=== PATIENT | male | born 1950 | race Caucasian/White ===

== ENCOUNTER 2018-11-08 09:50 | Inpatient (IN) | payer MEDICARE, OTHER ==
[~2018-11-08] VITALS: Ht 180.3 cm; Wt 104.5 kg
[~2018-11-08 09:50] MED LIST: ATENOLOL50 MG PO; Levothyroxine PO; SYNTHROID 0.10.15 MG PO; TRIGLIDE50 MG PO; ZYLOPRIM 100MG100 MG PO; ZYLOPRIM 300MG300 MG; [UNRECOGNIZED DRUG - REMARK] PO
[2019-01-06] VITALS (12 sets, daily range): BP systolic 125–143; BP diastolic 60–85; PULSE 61–81; TEMP 97.8–98.1
[2019-01-06] MEDS ORDERED: NORVASC 5MG5 MG/TAB PO (07:34)
[2019-01-06] MEDS ORDERED: ZYLOPRIM 300MG300 MG PO (07:35)
[2019-01-06] MEDS ORDERED: TIROSINT100 MC1 PO (07:37)
[2019-01-06] MEDS ORDERED: LIPITOR 10MG10 MG PO (07:38)
--- NOTE | 2019-01-06 08:29 | NUR ---
PT ADMITTED AMBULATORY TO ROOM 329. ASSESSMENTS COMPLETE, PRE OP MEDS GIVEN ORDERED. ATTEMPTED IV START TO LEFT HAND AND WAS NOT SUCCESSFUL. [facility] CONTACTD FOR ASSISTANCE.
--- NOTE | 2019-01-06 08:51 | NUR ---
PATIENT TO SURGERY AT THIS TIME PER BED WITH JOE. HALE STARTED BY AMANDA TO LEFT HAND.
--- NOTE | 2019-01-06 14:29 | NUR ---
PT TO ROOM 329 PER BED WITH REPORT FROM EVELYN SOTO PACU @2724. PT IS A/O X3, DRESSING TO LEFT HIP CDI WITH BULKY FOAM TAPE DRESSING OVER INCISION.
--- NOTE | 2019-01-06 16:23 | NUR ---
PT CONVERTED BY REPORT FROM TELE/ICU. STEFFANY MOY APRN AND DR. LIZ IN TO SEE PATIENT SEE COMPUTER FOR ORDERS.
--- NOTE | 2019-01-06 18:50 | NUR ---
REPORT TO MARCELO SOTO.
--- NOTE | 2019-01-06 23:25 | NUR ---
Patient got up and was able to ambulate in hallway with no issues. States pain in tolerable. Patient now resting in chair. No other concerns at this time. Will continue to monitor
[2019-01-07 01:26] VITALS: BP 143/65; PULSE 76; TEMP 98.2
[2019-01-07 07:55] LABS: HEMOGLOBIN 14.8 g/dl (13.5-18.0)
[2019-01-07 08:20] VITALS: BP 151/62; PULSE 84; TEMP 99.2
--- NOTE | 2019-01-07 08:25 | NUR ---
Lovett catheter discountinued. Catheter removed fully intact.Withdrew 8.8mls of water from the balloon. Emptied 175 mls from catheter bag. Urine was lucas and clear.
--- NOTE | 2019-01-07 08:47 | NUR ---
PT UP TO RECLINER FOR BREAKFAST. PT DOING WELL, PAIN WELL CONTROLLED WITH PO MEDS. PT EATING AND DRINKING WITH NO NAUSEA OR VOMITING, RAGSDALE CATHETER DISCONTINUED. PT DENIES NEEDS AT THIS TIME.
[2019-01-07 11:00] VITALS: BP 145/66; PULSE 82; TEMP 98.3
--- NOTE | 2019-01-07 16:02 | NUR ---
insemination worker met with patient and spouse to discuss discharge planning. patient states that he lives with his spouse and will return there upon discharge, possibly Sunday. patient states he has a walker and that spouse is obtaining a toilet riser. Spouse states that she will assist patient with sponge bathing and that they have a tub/shower. Patient's primary care provider is Dr Katz and patient states he obtains his prescriptions from [facility]. Spouset states they will obtain medications, as needed, at a local pharmacy and denies concerns with this plan. Worker collaborated with patient's nurse regarding the above information.
[2019-01-07 16:40] VITALS: BP 159/61; PULSE 67; TEMP 98.1
--- NOTE | 2019-01-07 19:31 | NUR ---
Patient doing well. Sitting up in chair. Voiding with no issues. No complaints of pain at this time or any other concerns. Call light within reach, will continue to monitor
[2019-01-07 20:00] VITALS: BP 164/68; PULSE 95; TEMP 97.7; TEMP 98.1
--- NOTE | 2019-01-07 21:42 | NUR ---
Patient ambulated about [address]. Tolerated it well. Patient says his pain is doing fine, does not want any pain meds at this time. Patient states he feels like he has to pee but is not able to, has tried a few times and has been unsuccessful. Patient did void a small amount aroumd 1700 he said. Informed patient to keep trying and if continues to be unsuccessful we will bladder scan and straigh cath.
--- NOTE | 2019-01-07 22:36 | NUR ---
Bladder scanned patient with result of 975 ml. Straight cath'd patient per Maverick Jose. Received 1000ml output. Patient states he feels a lot better. Will continue to monitor
[2019-01-07 23:36] VITALS: BP 159/92; PULSE 93; TEMP 98.4
[2019-01-08] VITALS (7 sets, daily range): BP systolic 128–160; BP diastolic 68–94; PULSE 86–101; TEMP 97.6–98.8
--- NOTE | 2019-01-08 02:32 | NUR ---
Pt called complaining of feeling the urge to pee but unable. States "when he tries it dwyer and nothing will come out." Bladder scanned patient to find 649 mls. Straight cath'd patient and received 600ml of clear, yellow urine. Patient states he feels better after that. Informed patient if unable to pee again, will have to call doctor and will likely have to place wahl again. Patient has no other concerns at this time, call light within reach. Will continue to monitor
--- NOTE | 2019-01-08 05:07 | NUR ---
Patient still not able to void, states he feels a burning sensation at tip of penis. Bladder scanned patient, total of 377mls. JESSICA Brown called and notified, stated to see what Dr. Khan thinks since patient has been straight cath'd twice already. Kevin stated to call if patient ends up in severe discomfort. Will notify Dr. Khan when comes in for rounds.
[2019-01-08 06:25] LABS: HEMATOCRIT 42.1 % (42.0-52.0); HEMOGLOBIN 14.3 g/dl (13.5-18.0)
[2019-01-08] MEDS ORDERED: ASPI325T6 PO (07:04)
[2019-01-08] MEDS ORDERED: NORCO 325 MG-7.1 TAB PO (07:05)
[2019-01-08] MEDS ORDERED: TYLENOL 500MG500 MG PO (07:05)
[2019-01-08] MEDS ORDERED: COLACE 100100 MG/CAP PO (07:06)
--- NOTE | 2019-01-08 08:40 | NUR ---
Pt having issues with bladder retention. Attempted several times to void with no results. Used bladder scanner and viewed 250-300 mls. Patient refusing to eat or drink due to discomfort. Reported to Ilan SOTO.
--- NOTE | 2019-01-08 09:58 | NUR ---
Initial visit; Les thanked Social Work Nurse for looking in on him and offering God's blessings.
--- NOTE | 2019-01-08 11:09 | NUR ---
RERPORT FROM MARCELO SOTO. PT UNABLE TO VOID LAST NOC, DR. SUE CONSULTED WILL SEE PATIENT THIS PM. PT STILL UNABLE TO VOID AFTER THERAPY THIS AM. BLADDER SCANNED AND THEN STRAIGHT CATH BY WAREHOUSE HAND STUDENT AND INSTRUCTOR.
--- NOTE | 2019-01-08 11:31 | NUR ---
BLADDER SCAN SHOWED 450MLS IN BLADDER. STRAIGHT CATH PREFORMED.
--- NOTE | 2019-01-08 11:42 | NUR ---
700 MLS CONCENTRATED YELLOW URINE REMOVED VIA STRAIGHT CATH @1146
--- NOTE | 2019-01-08 16:31 | NUR ---
PT UNABLE TO VOID. WALTER LOPEZ NOTIFIED AND WILL RE-EVAL IN AM AFTER UROLOGY CONSULT TODAY.
--- NOTE | 2019-01-08 22:52 | NUR ---
Patient c/o not being able to pee. Bladder scanner not work. Straight cath'd patient with output of 600ml, clear yellow urine. Small amount of blood noted in catheter. Patient taught how to self cath.
[2019-01-09 04:52] VITALS: BP 146/83; PULSE 98; TEMP 97.9
[2019-01-09] MEDS ORDERED: FLOMAX 0.40.4 MG/CAP PO (07:08)
[2019-01-09] MEDS ORDERED: BACTRIM DS 8001 TAB PO (08:08)
[2019-01-09 08:35] VITALS: BP 119/57; PULSE 93; TEMP 98.1
[2019-01-09 12:02] VITALS: BP 126/67; PULSE 75; TEMP 98
--- NOTE | 2019-01-09 14:45 | NUR ---
PATIENT DISCHARGING HOME VIA WHEELCHAIR TO PERSONAL VEHICLE WITH . GAVE DISCHARGE INSTRUCTIONS, PRESCRIPTIONS & F/U APT. ANSWERED ALL QUESTIONS/CONCERNS. PATIENT DISCHARGING WITH RAGSDALE TO DD. PATIENT HAS APT ON SUNDAY TO HAVE RAGSDALE DC'D IN UROLOGY OFFICE. DC'D IV AND COVERED WITH WITH BANDAID. PATIENT DISCHARGED.
== END 2019-01-09 14:45 | disposition home or self-care (01) | DRG 470 ==
LOC: JCC 01-06 07:01
PROVIDERS: ADMIT Orthopaedic Surgery
PROC: 0SR90JA Replacement of Right Hip Joint with Synthetic Substitute, Uncemented, Open Approach (ICD-10-PCS; principal; 2019-01-06 10:25)
DX: M16.11 Unilateral primary osteoarthritis, right hip (principal); I10 Essential (primary) hypertension; K21.9 Gastro-esophageal reflux disease without esophagitis; G47.33 Obstructive sleep apnea (adult) (pediatric); E03.9 Hypothyroidism, unspecified; R33.9 Retention of urine, unspecified; Z79.82 Long term (current) use of aspirin
CPT/HCPCS: A9284; C1713; C1776; J0690; J2250; J2704; J3010; J7030; J7120

== ENCOUNTER → 2018-12-26 | Outpatient (CLI) | payer MEDICARE, OTHER | LOC: COL.LAB 10:50 | DX: Z01.812 Encounter for preprocedural laboratory examination (principal); Z01.83 Encounter for blood typing; M17.0 Bilateral primary osteoarthritis of knee; M16.0 Bilateral primary osteoarthritis of hip ==

== ENCOUNTER 2019-01-10 12:45 | Outpatient (RCR) | payer MEDICARE, OTHER ==
[~2019-01-10 12:45] MED LIST changes: +ASPI325T6 PO; +BACTRIM DS 8001 TAB PO; +COLACE 100100 MG/CAP PO; +FLOMAX 0.40.4 MG/CAP PO; +LIPITOR 10MG10 MG PO; +NORCO 325 MG-7.1 TAB PO; +NORVASC 5MG5 MG/TAB PO; +TIROSINT100 MC1 PO; +TYLENOL 500MG500 MG PO; +ZYLOPRIM 300MG300 MG PO
== END 2019-03-31 | disposition still patient (30) ==
LOC: WSC
DX: Z01.818 Encounter for other preprocedural examination (principal)

== ENCOUNTER 2019-04-01 14:00 | Outpatient (RCR) | payer MEDICARE, OTHER | END 2019-04-10 | disposition home or self-care (01) | LOC: WSPT | DX: Z01.818 Encounter for other preprocedural examination (principal) ==

== ENCOUNTER 2019-04-16 13:00 | Outpatient (RCR) | payer MEDICARE, OTHER | END 2019-06-12 14:10 | disposition home or self-care (01) | LOC: WSC 13:00 | DX: Z01.812 Encounter for preprocedural laboratory examination (principal) ==

== ENCOUNTER 2020-01-22 04:10 | Emergency (ER) | payer MEDICARE, OTHER ==
[~2020-01-22] VITALS: Ht 180.3 cm; Wt 109.1 kg
[2020-01-22 04:16] VITALS: BP 177/97; PULSE 89; TEMP 98.5
[2020-01-22] MEDS ORDERED: FLOMAX 0.40.4 MG/CAP PO (04:29)
[2020-01-22 04:47] LABS: COLLECTION METHOD IN
[2020-01-22 04:53] LABS: MUCOUS Present /lpf; PH 5 (5-8); SQUAMOUS EPITHELIAL None Seen /hpf; URINE APPEARANCE Clear; URINE BACTERIA None Seen /hpf; URINE BILIRUBIN Negative (NEGATIVE); URINE BLOOD 1+ (NEGATIVE); URINE COLOR Yellow; URINE GLUCOSE Negative (NEGATIVE); URINE KETONE Negative (NEGATIVE); URINE LEUKOCYTE ESTERASE Negative (NEGATIVE); URINE NITRATE Negative (NEGATIVE); URINE PROTEIN(semi-quant) Negative (NEGATIVE); URINE RBC 0-2 /hpf; URINE UROBILINOGEN Negative (NEGATIVE)
== END 2020-01-22 05:25 | disposition home or self-care (01) ==
LOC: COL.ER 04:10
PROVIDERS: Emergency Medicine
DX: R33.9 Retention of urine, unspecified (principal); I10 Essential (primary) hypertension; E03.9 Hypothyroidism, unspecified; E78.5 Hyperlipidemia, unspecified; N40.0 Benign prostatic hyperplasia without lower urinary tract symptoms; Z90.49 Acquired absence of other specified parts of digestive tract; Z96.641 Presence of right artificial hip joint; Z79.82 Long term (current) use of aspirin

== ENCOUNTER 2020-01-28 10:40 | Inpatient (IN) | payer MEDICARE, OTHER ==
[~2020-01-28] VITALS: Ht 180.3 cm; Wt 103.7 kg
[2020-01-28 11:34] LABS: COLLECTION METHOD CLEAN CATCH
[2020-01-28 12:02] LABS: ALBUMIN 4.3 gm/dL (3.5-5.0); BILIRUBIN,TOTAL 2.3 mg/dL (0.0-1.0); C-REACTIVE PROTEIN 8.4 mg/dL (0.0-0.9); CALCIUM 9.1 mg/dL (8.4-10.2); CREATININE, serum 1.59 (0.66-1.25); MAGNESIUM 1.9 mg/dL (1.6-2.3); MUCOUS Present /lpf; PH 6 (5-8); POTASSIUM 3.6 mmol/L (3.4-5.0); SQUAMOUS EPITHELIAL 0-2 /hpf; TOTAL PROTEIN 7.7 gm/dL (6.4-8.2); URINE APPEARANCE Cloudy; URINE BACTERIA Moderate /hpf; URINE BILIRUBIN Negative (NEGATIVE); URINE BLOOD 1+ (NEGATIVE); URINE COLOR Yellow; URINE GLUCOSE Negative (NEGATIVE); URINE KETONE Negative (NEGATIVE); URINE LEUKOCYTE ESTERASE 2+ (NEGATIVE); URINE NITRATE Positive (NEGATIVE); URINE PROTEIN(semi-quant) 1+ (NEGATIVE); URINE UROBILINOGEN Negative (NEGATIVE)
[2020-01-28 12:04] LABS: HEMATOCRIT 50.4 % (42.0-52.0); HEMOGLOBIN 16.8 g/dl (13.5-18.0); MEAN CELL VOLUME 89 fl (80.0-100.0); MEAN CORPUSCULAR HEMOGLOBIN 30 pg (27.0-31.0); MEAN CORPUSCULAR HGB CONC 33 g/dl (33.0-37.0); MEAN PLATELET VOLUME 10.4 fl (7.4-10.4); PLATELET COUNT 235 K/mm3 (130-400); RED BLOOD COUNT 5.64 M/mm3 (4.20-5.60); REDCELL DISTRIBUTION WIDTH-CV 13.3 % (11.5-14.5)
[2020-01-28 12:36] LABS: BAND 18 % (0-10); EOSINOPHIL 1 % (0-4); LYMPHOCYTE 12 % (20.0-51.0); NEUTROPHILS 64 % (42.0-75.2); PLATELET ESTIMATE NORMAL (NORMAL)
[2020-01-28 12:43] LABS: TROPONIN-I < 0.012 ng/mL (0.000-0.035)
--- NOTE | 2020-01-28 14:36 | NUR ---
Patient to room from ER via wheelchair. Ambulates from wheel chair to bed. Gait steady. Denies pain at this time.Oriented to room. Denies additional needs.
[2020-01-28 15:01] VITALS: BP 115/66; PULSE 77; TEMP 98.4
[2020-01-28 15:03] VITALS: BP 115/66; PULSE 77; TEMP 98.4
--- NOTE | 2020-01-28 16:06 | NUR ---
World Designer met with the patient and his to complete initial intake. The patient lives with his , Gabi #[phone]. The patient has a walker and shower chair. He reports he had a hip surgery last year and he has other DME for the bathroom. The patient is independent. The patient's PCP is Dr. Katz and the patient receives medication from [place]. The patient does not have advanced directives but was interested in a DPOA-HC form. Form provided. The patient plans to return home at discharge. SW collaborated the above information with the patient's nurse.
--- NOTE | 2020-01-28 16:30 | NUR ---
Bladder scan showed approx 428mL of urine in bladder. Patient continues to not be able to void. JESSICA Gerard, updated and orders received for wahl placement. Patient and informed of procedure process and reason for catheter insertion. Patient says that he has been through this many times due to urinary retention. Pericare with three castile wipes that are in wahl kit. Site cleansed with three betadine swabs. 16fr wahl catheter inserted using sterile technique. Urine return of dark lucas urine with some sediment in tubing and bag. Balloon inflated with 10ml saline. Securement device attached to right leg and wahl secured. Excess betadine cleaned from patient. Patient tolerates procedure without difficulty. Denies additional needs or concerns at this time.
--- NOTE | 2020-01-28 17:53 | NUR ---
Lying in bed watching TV, at bedside. Denies pain. Is frustrated that he is in the hospital but understands why. Patient says that when he gets to leave he would prefer to leave with the catheter due to all of his issues with urinary retention. Explain that we will address that closer to his time of discharge. Catheter draining lucas colored urine. Denies any needs or concerns at this time.
[2020-01-28 18:56] VITALS: BP 124/84; PULSE 100; TEMP 101.5
[2020-01-28 19:34] VITALS: TEMP 100.4
--- NOTE | 2020-01-28 21:10 | NUR ---
Patient assessed at this time. Alert and oriented x 4, and able to make needs known. Reports level 2 pain "all over" described as achy. Denies needing anything for pain at this time. Peripheral IV to left forearm, fluids running per orders. Site without redness, warmth, swelling, and pain. Denies SOB and dyspnea. LS CTA. Respirations even and unlabored. HRR. Telemetry: normal sinus. Capillary refill less than 3 seconds. Non-tenting skin turgor. BSAx4. Abdomen soft and non-tender. No edema. Indwelling wahl catheter patent, draining lucas urine with sediment present via dependent drainage. Voices no questions, needs, or concerns at this time. Had fever of 101.5 around 1855, and received PRN APAP at 1900. Temp at 1935 100.4.
[2020-01-28 23:00] VITALS: BP 127/68; PULSE 92; TEMP 99.2
[2020-01-29] VITALS (7 sets, daily range): BP systolic 126–141; BP diastolic 60–74; PULSE 73–97; TEMP 98–100
--- NOTE | 2020-01-29 05:38 | NUR ---
Patient has been resting in bed with call light within reach. Has denied having pain and discomfort. Voices no questions, needs, or concerns at this time. Indwelling wahl catheter patent, draining lucas urine, with sediment present. Continues on antibiotics per MD orders. Resting in bed with call light within reach.
[2020-01-29 06:53] LABS: BASO # 0.1 (0.0-0.2); BASO % 0.4 % (0.0-2.0); EOS # 0.1 (0.0-0.7); EOS % 0.6 % (0-4.0); GRAN # 13.1 (1.4-6.5); GRAN % 77.7 % (42.2-75.2); HEMATOCRIT 43.2 % (42.0-52.0); LYMPH # 2.1 (1.2-3.4); LYMPH % 12.4 % (20.0-51.0); MEAN CELL VOLUME 89 fl (80.0-100.0); MEAN CORPUSCULAR HEMOGLOBIN 30 pg (27.0-31.0); MEAN CORPUSCULAR HGB CONC 34 g/dl (33.0-37.0); MEAN PLATELET VOLUME 10.9 fl (7.4-10.4); MONO # 1.4 (0.1-0.6); MONO % 8.2 % (1.7-9.3); PLATELET COUNT 200 K/mm3 (130-400); RED BLOOD COUNT 4.86 M/mm3 (4.20-5.60); REDCELL DISTRIBUTION WIDTH-CV 13.4 % (11.5-14.5)
[2020-01-29 07:07] LABS: ALBUMIN 3.4 gm/dL (3.5-5.0); BILIRUBIN,TOTAL 1.2 mg/dL (0.0-1.0); CALCIUM 8.2 mg/dL (8.4-10.2); CREATININE, serum 1.39 (0.66-1.25); POTASSIUM 3.2 mmol/L (3.4-5.0); TOTAL PROTEIN 6.2 gm/dL (6.4-8.2)
[2020-01-29 07:09] LABS: HEMOGLOBIN 14.6 g/dl (13.5-18.0)
--- NOTE | 2020-01-29 10:56 | NUR ---
First visit from the instructional support specialist. No needs right now.
--- NOTE | 2020-01-29 13:42 | NUR ---
Primary nurse was assisted with [phone] patient care by [employer] [facility] Lottie Diaz and [employer] instructor Delfina Myles RN-.
--- NOTE | 2020-01-29 18:21 | NUR ---
Pt assessment completed and charted. Medications administered per mar. Pt A&O, indpedendent in room, on room air, breathing is even and unlabored. Pt denies pain other than "burning to his eyes" this morning at shift change, later described as pain to Lt eye and headache. Lights were dimmed, natural sunlight and tv did not bother pt. Rajani LOPEZ aware, pt went down for CT,no abnormalities. Pt has wahl draining lucas clear urine. LFA IV w/ NS @75ml/hr running w/o issues. No further needs expressed throughout day.
--- NOTE | 2020-01-29 22:00 | NUR ---
Resting in bed. Assessment complete. Lungs clear. Heart sounds normal. Bowels active x4. Pulses present throughout. No edema noted. IV left forearm without complications. Denies pain. Lovett to dependent drainage. Denies needs at this time. Call light in reach.
--- NOTE | 2020-01-29 23:39 | NUR ---
Resting in bed. Denies pain. Patient temp elevated. Given PRN tylenol. Will monitor.
[2020-01-30] VITALS (7 sets, daily range): BP systolic 127–146; BP diastolic 66–74; PULSE 62–75; TEMP 97.5–98.7
--- NOTE | 2020-01-30 01:55 | NUR ---
Resting in bed. Denies needs. Call light in reach.
--- NOTE | 2020-01-30 04:15 | NUR ---
Resting in bed. Denies needs. Denies pain. Call light in reach.
--- NOTE | 2020-01-30 05:50 | NUR ---
Patient had x1 temp. throughout night. Was given PRN tylenol. Otherwise uneventful night. Resting in bed this AM. Call light in reach.
[2020-01-30 06:58] LABS: CALCIUM 8.2 mg/dL (8.4-10.2); CREATININE, serum 1.12 (0.66-1.25); POTASSIUM 3.5 mmol/L (3.4-5.0)
[2020-01-30 07:07] LABS: BASO # 0.1 (0.0-0.2); BASO % 0.5 % (0.0-2.0); EOS # 0.3 (0.0-0.7); EOS % 3.4 % (0-4.0); GRAN # 6.8 (1.4-6.5); GRAN % 69.8 % (42.2-75.2); HEMATOCRIT 43.2 % (42.0-52.0); HEMOGLOBIN 14.5 g/dl (13.5-18.0); LYMPH # 1.8 (1.2-3.4); MEAN CELL VOLUME 89 fl (80.0-100.0); MEAN CORPUSCULAR HEMOGLOBIN 30 pg (27.0-31.0); MEAN CORPUSCULAR HGB CONC 34 g/dl (33.0-37.0); MEAN PLATELET VOLUME 10.9 fl (7.4-10.4); MONO # 0.8 (0.1-0.6); PLATELET COUNT 194 K/mm3 (130-400); RED BLOOD COUNT 4.83 M/mm3 (4.20-5.60); REDCELL DISTRIBUTION WIDTH-CV 13.4 % (11.5-14.5)
--- NOTE | 2020-01-30 07:39 | NUR ---
Report given to BRITTANY Valentin
--- NOTE | 2020-01-30 10:39 | NUR ---
SW attended clinical rounds. The patient may be able to d/c tomorrow, 01/30. SW followed up with the patient and presented and read the IM form outloud to him. The patient verbalized understanding and gave SW approval to sign the form on his behalf. SW provided him with a copy. The patient had no questions or concerns for SW about returning home. CHARLEY then contacted and reviewed the d/c plan with the patient's , Gabi. Gabi is in agreement with the patient returning back home with her and had no concerns with him doing so. No additional needs at this time.
--- NOTE | 2020-01-30 11:23 | NUR ---
Pt assessment completed and charted, medications administered per mar. pt A&O, independent in room, on room air, breathing is even and unlabored, denies SOB. pt denies cough, chest pain, dizziness, N/V/D, numbness or tingling. BS activeX4, LS cta, HRRR, pulses strong bilaterally, no edema present. Pt has chronic wahl draining lucas urine. Pt has 20G LFA IV w/ NS running w/o complications. IVF dc'd during rounds. No further needs expressed. Pt requesting to walk halls, he has worked w/ PT/OT, given the ok to ambulate independently in halls. Pt informed on mask policy. All questions answered, possible DC tomorrow.
--- NOTE | 2020-01-30 14:52 | NUR ---
Pt having uneventful day, IVF dc'd. at bedside. Pt up to shower. No concerns expressed. Cath care provided.
--- NOTE | 2020-01-30 20:30 | NUR ---
Initial shift assessment done- denies any pain, Tele on, afebrile, Lovett to DD with clear yellow urine. No requests. Up on own in room-steady gait
[2020-01-31 03:36] VITALS: BP 123/76; PULSE 62; TEMP 98
[2020-01-31 06:43] LABS: BASO # 0.1 (0.0-0.2); BASO % 0.7 % (0.0-2.0); EOS # 0.4 (0.0-0.7); EOS % 4.8 % (0-4.0); GRAN # 4.8 (1.4-6.5); GRAN % 56.9 % (42.2-75.2); HEMATOCRIT 45.2 % (42.0-52.0); LYMPH # 2.3 (1.2-3.4); LYMPH % 27.3 % (20.0-51.0); MEAN CELL VOLUME 90 fl (80.0-100.0); MEAN CORPUSCULAR HEMOGLOBIN 30 pg (27.0-31.0); MEAN CORPUSCULAR HGB CONC 33 g/dl (33.0-37.0); MEAN PLATELET VOLUME 10.8 fl (7.4-10.4); MONO # 0.9 (0.1-0.6); MONO % 10.1 % (1.7-9.3); PLATELET COUNT 268 K/mm3 (130-400); RED BLOOD COUNT 5.04 M/mm3 (4.20-5.60); REDCELL DISTRIBUTION WIDTH-CV 13.5 % (11.5-14.5)
[2020-01-31 06:50] LABS: CALCIUM 8.8 mg/dL (8.4-10.2); CREATININE, serum 1.29 (0.66-1.25); POTASSIUM 3.6 mmol/L (3.4-5.0)
--- NOTE | 2020-01-31 08:00 | NUR ---
Patient sitting up in bed resting. Alert and oriented x 3. Assessment complete. Lovett to dependent drainage with clear yellow urine in bag. Denies pain at this time. INT to left forarm without complications. Denies further needs at this time. Patient independent in room.
[2020-01-31 08:39] VITALS: BP 133/69; PULSE 72; TEMP 98.1
[2020-01-31] MEDS ORDERED: OMNICEF 300MG300 MG PO ×2 (08:54)
--- NOTE | 2020-01-31 11:35 | NUR ---
Discharge education provided to patient. Educated on when to call provider and follow up appointments. Educated patient on new medication and catheter care. Educated patient on importance of cleaning around catheter site and changing to leg bag. All questions answered. INT to left forarm discontinued, catheter tip intact. Denies further needs at this time. Patient ambulated out with surgical staff and family.
== END 2020-01-31 11:35 | disposition home or self-care (01) | DRG 698 ==
LOC: COL.ER 10:40 → MEDICAL 13:38
PROVIDERS: Emergency Medicine; Physician Assistant; ADMIT Student in an Organized Health Care Education/Training Program
DX: T83.518A Infection and inflammatory reaction due to other urinary catheter, initial encounter (principal); A41.9 Sepsis, unspecified organism; R65.20 Severe sepsis without septic shock; N17.9 Acute kidney failure, unspecified; Y83.8 Other surgical procedures as the cause of abnormal reaction of the patient, or of later complication, without mention of misadventure at the time of the procedure; E87.6 Hypokalemia; R51.9 Headache, unspecified; R07.9 Chest pain, unspecified; N18.9 Chronic kidney disease, unspecified; I12.9 Hypertensive chronic kidney disease with stage 1 through stage 4 chronic kidney disease, or unspecified chronic kidney disease; E78.5 Hyperlipidemia, unspecified; E03.9 Hypothyroidism, unspecified; N40.0 Benign prostatic hyperplasia without lower urinary tract symptoms; M10.9 Gout, unspecified; Z20.828 Contact with and (suspected) exposure to other viral communicable diseases; Z79.82 Long term (current) use of aspirin
CPT/HCPCS: 99223-AI; 99232-AI; 99239; A4314; J0692; J0696; J1200; J1644; J2765; J7030

== ENCOUNTER 2020-02-10 12:23 | Inpatient (IN) | payer MEDICARE, OTHER ==
[~2020-02-10] VITALS: Ht 180.3 cm; Wt 103.9 kg
[2020-02-10] VITALS (11 sets, daily range): BP systolic 117–155; BP diastolic 54–83; PULSE 55–84; TEMP 97.6–98.6
[~2020-02-10 12:23] MED LIST changes: +OMNICEF 300MG300 MG PO
--- NOTE | 2020-02-10 18:30 | NUR ---
Patient arrived to floor at 1715. Patient is alert and oriented. Denies nausea and pain. He is able to move his legs but can not feel his toes. His only complaint is of feeling hungry. Urine is punch colored red, no clots noted. Explained how spinal works and that once it stops working, he will might have increased pain. CBI flowing at a moderate rate. No other changes at this time. Call light within reach.
--- NOTE | 2020-02-10 21:00 | NUR ---
Patient resting in bed. Patient has no complaints of pain. Oitment put on and catheter care provided. Patient got up and walked to the bathroom, ambulated well.
--- NOTE | 2020-02-11 02:33 | NUR ---
Patient reports fullness in bladder and some blood coming out of his penis. Hand irrigated the catheter and pulled many small clots out. Gave him B&O suppository for complaint of bladder spasms. Now draining light pink.
[2020-02-11 04:48] VITALS: BP 158/73; PULSE 98; TEMP 99.2
--- NOTE | 2020-02-11 04:55 | NUR ---
Patient up to bathroom ambulating well. Patients CBI draining light pink. No complaints of pain.
--- NOTE | 2020-02-11 08:00 | NUR ---
Pateint resting in bed at this time. Patient is alert and oriented, answers questions appropriately. CBI running at a slow rate, urine is barajas red, no clots visible. Patient denies pain but states he is starting to feel bladder spasms again. Recieved TORB for levsin, administered per order. Patient denies further needs, call light within reach.
[2020-02-11 08:36] VITALS: BP 127/64; PULSE 79; TEMP 99.5
[2020-02-11] MEDS ORDERED: PYRIDIUM 100MG100 MG PO (11:33)
[2020-02-11 11:38] VITALS: BP 124/64; PULSE 88; TEMP 98.7
--- NOTE | 2020-02-11 11:56 | NUR ---
First visit from the profiling machine setup operator. No needs right now.
[2020-02-11 16:35] VITALS: BP 126/57; PULSE 85; TEMP 100.4
--- NOTE | 2020-02-11 18:21 | NUR ---
Patient resting in bed at this time. Patient remains alert and oriented, has not c/o bladder spasms since this morning, but blood increased quite a bit throughout the shift, CBI had to be turned up. Small to moderate sized clots visible in tubing and bag, but patient has not required irrigation. Patient denies needs at this time, call light within reach.
[2020-02-11 19:51] VITALS: BP 155/76; PULSE 89; TEMP 98.4
--- NOTE | 2020-02-11 20:00 | NUR ---
Report received, assumed care for costume design teacher. Assessment complete. A&Ox3. Denies pain/nausea/shortness of breath. States he has an occasional bladder spasm but nothing more. CBI running at a slow rate-output light pink with occasional pea size clot. Plan of care discussed for this shift to include HS meds/CBI/calling for questions/concerns. Call light in reach. Will monitor.
[2020-02-12 00:04] VITALS: BP 136/69; PULSE 84; TEMP 98.4
--- NOTE | 2020-02-12 00:30 | NUR ---
CBI adjusted at this time due to increased blood/clots in tubing. No irrigation needed. CBI running at a moderate rate. Will monitor.
[2020-02-12 03:49] VITALS: BP 143/80; PULSE 85; TEMP 98
--- NOTE | 2020-02-12 05:54 | NUR ---
CBI going at a very slow rate. Has not had any noteable clots-output is light pink. Total in this shift 3450mls/total out 5450mls. Denies pain or discomfort. Call light in reach. Will monitor.
[2020-02-12 07:17] VITALS: BP 127/63; PULSE 75; TEMP 98.1
--- NOTE | 2020-02-12 10:00 | NUR ---
Discontinued wahl catheter around 0830. 40ml of saline removed from catheter balloon. Patient tolerated well. Explained 6 cup routine, no questions verbalized. Patient has voided twice, urine is red/pink, no clots noted. He denies any issues with voiding. No other changes at this time. Call light within reach.
--- NOTE | 2020-02-12 11:34 | NUR ---
Parts Remover staffed with the patient's nurse. The patient is completely independent in the room. SW met with the patient to complete initial intake. The patient lives in [place] with his , Gabi. The patient denies DME use and is independent with ADLs. The patient's PCP is Dr. Schwartz and patient receives medications from [facility]. The patient does not have advanced directives and was not interested in DPOA-HC form. The patient plans to return home at discharge with Gbai. There are no additional needs at this time.
[2020-02-12 11:38] VITALS: BP 140/70; PULSE 77; TEMP 97.6
--- NOTE | 2020-02-12 14:00 | NUR ---
Patient is discharging home. [facility] is here to get him. Discharge instructions discussed with patient, no questions verbalized. INT discontinued. Explained when follow up with Dr Tellez and any signs and symptoms of infection. Copies of discharge instructions sent with patient. All belongings packed up and sent with patient. Patient walked out via wheel chair by Marisa LR.
== END 2020-02-12 14:15 | disposition home or self-care (01) | DRG 667 ==
LOC: SDCO 12:23 → SURG 12:30 → SDCO 15:00 → SURG 02-12 14:15
PROVIDERS: ADMIT Urology
PROC: 0VT08ZZ Resection of Prostate, Via Natural or Artificial Opening Endoscopic (ICD-10-PCS; principal; 2020-02-10 15:00)
DX: R33.9 Retention of urine, unspecified (principal); E78.5 Hyperlipidemia, unspecified; M10.9 Gout, unspecified; E03.9 Hypothyroidism, unspecified; I10 Essential (primary) hypertension; Z96.641 Presence of right artificial hip joint; R13.10 Dysphagia, unspecified; R35.1 Nocturia; Z87.442 Personal history of urinary calculi
CPT/HCPCS: J0690; J2250; J2405; J2704; J3010; J7120

== ENCOUNTER 2021-06-01 09:01 | Emergency (ER) | payer MEDICARE, OTHER ==
[~2021-06-01] VITALS: Ht 180.3 cm; Wt 106.8 kg
[~2021-06-01 09:01] MED LIST changes: +PYRIDIUM 100MG100 MG PO
[2021-06-01 12:39] VITALS: TEMP 97.5
[2021-06-01 13:06] VITALS: BP 143/85; PULSE 71
== END 2021-06-01 13:32 | disposition home or self-care (01) ==
LOC: COL.ER 09:01
DX: T18.128A Food in esophagus causing other injury, initial encounter (principal); I10 Essential (primary) hypertension; W45.8XXA Other foreign body or object entering through skin, initial encounter
CPT/HCPCS: J0330; J1100; J2405; J2704; J3010; J7030

== ENCOUNTER 2021-07-05 08:34 | Day surgery (SDC) | payer MEDICARE, OTHER ==
[~2021-07-05] VITALS: Ht 180.3 cm; Wt 99.3 kg
[2021-07-05] MEDS ORDERED: ZYLOPRIM 300MG300 MG PO (08:49)
[2021-07-05 08:56] VITALS: BP 138/87; PULSE 67; TEMP 97.9
[2021-07-05 10:35] VITALS: BP 107/72; PULSE 69; TEMP 97.4
[2021-07-05 10:50] VITALS: BP 117/76; PULSE 61
[2021-07-05 11:05] VITALS: BP 126/74; PULSE 61
--- NOTE | 2021-07-05 11:20 | NUR ---
1035 PT RETURNED TO BAY 5 VIA CART. TRANSFERED TO CHAIR WITH 2 RN ASSIST. ALERT AND ORIENTED. MONITORS ATTACHED, INTERVALS AND ALARMS SET. DIET PEPSI AND VANILLA ICE CREAM PROVIDED. PT DENIES ANY DISCOMFORT. 1050 PT TOLERATING FOOD AND DRINK WELL. VSS. 1105 PT REPORTS NO QUESTIONS FROM DR. TAVERA'S INSTRUCTIONS. REVIEWED DISCHARGE INSTRUCTIONS AND EDUCATION PACKET. PT AND DENY ANY QUESTIONS. IV REMOVED WITHOUT COMPLICATION. PT ALLOWED TO DRESS. 1120 PT TRANSFERED VIA WHEELCHAIR TO PERSONAL VEHICLE TO BE DRIVEN HOME BY .
== END 2021-07-05 11:20 | disposition home or self-care (01) ==
LOC: SDCO 08:34
DX: K20.0 Eosinophilic esophagitis (principal); K22.89 Other specified disease of esophagus; K29.30 Chronic superficial gastritis without bleeding
CPT/HCPCS: J2704; J7120